=== PATIENT | male | born 1940 | race Caucasian/White ===

== ENCOUNTER 2018-08-18 08:57 | Inpatient (IN) ==
[2018-08-11 13:41] LABS: URINE SOURCE CLEAN CATCH
[2018-08-11 13:47] LABS: BILIRUBIN URINE NEGATIVE (NEGATIVE); BLOOD URINE NEGATIVE (NEGATIVE); COLOR YELLOW; GLUCOSE URINE NEGATIVE (NEGATIVE); KETONE URINE NEGATIVE (NEGATIVE); LEUKOCYTES URINE NEGATIVE (NEGATIVE); NITRITE URINE NEGATIVE (NEGATIVE); PH URINE 6.5; PROTEIN URINE NEGATIVE (NEGATIVE); SP GRAVITY URINE 1.004; TURBIDITY URINE CLEAR (CLEAR); UROBILINOGEN URINE NORMAL (NORMAL)
[2018-08-11 13:49] LABS: UR EPITHELIAL CELLS <10 /HPF (<10); URINE BACTERIA NEGATIVE /HPF; URINE RBC <10 /HPF (<10); URINE WBC <10 /HPF (<10)
[2018-08-11 13:50] LABS: BASO# 0.01 X1000 (0.0-0.2); BASO% 0.2 % (0.0-0.8); EOS# 0.14 X1000 (0.0-0.7); EOS% 2.2 % (0.0-10.0); HEMATOCRIT 43.8 % (42.0-52.0); HEMOGLOBIN 14.4 g/dL (14.0-18.0); IMM GRAN# 0.02 X1000 (0.0-0.04); IMM GRAN% 0.3 % (0.0-0.5); LYMPH# 1.65 X1000 (1.2-3.4); LYMPH% 26.1 % (20.5-51.1); MCHC 32.9 g/dL (33-37); MONO# 0.63 X1000 (0.11-0.59); MPV 9.2 FL (7.4-10.4); NEUT# 3.87 X1000 (1.4-6.5); NEUT% 61.2 % (42.2-75.2); PLT 199 X1000 (130-400); RBC 5.34 XMIL (4.7-6.1); RDW 13.2 % (11.5-14.5); WBC 6.32 X1000 (4.8-10.8)
[2018-08-11 14:03] LABS: AGAP 11; BUN 13 mg/dL (8-22); CALCIUM 9.4 mg/dL (8.8-10.2); CHLORIDE 98 mmol/L (98-107); COSMO 270; CREATININE 0.8 mg/dL (0.7-1.2); ESTIMATED GFR > 60; GLUCOSE 96 mg/dL (70-104); POTASSIUM 4.5 mmol/L (3.5-5.1); SODIUM 135 mmol/L (136-145); TCO2 26 mmol/L (25-35)
--- NOTE | 2018-08-11 14:03 | EKG Report ---
Test Performed on : 08/11/2018 1:30:53 PM Test Reason : PAT Blood Pressure : / mmHG Vent. Rate : 058 BPM Atrial Rate : 058 BPM P-R Int : 176 ms QRS Dur : 086 ms QT Int : 406 ms P-R-T Axes : 033 027 -20 degrees QTc Int : 398 ms Sinus bradycardia. Inferior infarct , age undetermined Abnormal ECG No previous ECGs available Confirmed by Terry FAIRCHILD, Don Barton ([id number]) on 08/12/2018 7:11:03 AM
[2018-08-11 14:14] LABS: INR 0.95; PROTIME 13.5 Seconds (11.0-16.0); PTT 27.5 Seconds (22.3-41.8)
[2018-08-18] MEDS ORDERED: CELEBREX ONE (09:15)
[2018-08-18] MEDS ORDERED: PEPCID ONE (09:15)
[2018-08-18] MEDS ORDERED: REGLAN ONE (09:15)
[2018-08-18] MEDS ORDERED: COLACE ONE (09:15)
[2018-08-18] MEDS ORDERED: LYRICA ONE (09:15)
[2018-08-18] MEDS ORDERED: LR 1,000 ML ONE (09:16)
[2018-08-18] MEDS ORDERED: KEFZOL 1 GM/D5W 2 GM/100 ML IVPB ONE (09:16)
[2018-08-18] MEDS ORDERED: DIPRIVAN 1% ONE (10:00)
[2018-08-18] MEDS ORDERED: XYLOCAINE-MPF 2% ONE (10:00)
[2018-08-18] MEDS ORDERED: QUELICIN (DOSE) ONE (10:00)
[2018-08-18] MEDS ORDERED: FENTANYL ONE (10:00)
[2018-08-18] MEDS ORDERED: ROBINUL ONE (10:19)
[2018-08-18] MEDS ORDERED: NEOSTIGMINE ONE (10:19)
[2018-08-18] MEDS ORDERED: SODIUM CHLORIDE 0.9% ONE (11:35)
[2018-08-18] MEDS ORDERED: CYKLOKAPRON 1,000 MG/NS 1,000 MG/100 ML IVPB ONE (11:35)
[2018-08-18] MEDS ORDERED: DURAMORPH ONE (11:35)
[2018-08-18] MEDS ORDERED: TORADOL ONE (11:35)
[2018-08-18] MEDS ORDERED: SENSORCAINE-MPF 0.5%/EPI 1:200,000 ONE (11:35)
[2018-08-18] MEDS ORDERED: NEOSPORIN G.U. IRRIGANT ONE (11:36)
[2018-08-18] MEDS ORDERED: EXPAREL 1.3% ONE (11:36)
[2018-08-18] MEDS ORDERED: SOLU-CORTEF ONE (12:50)
[2018-08-18] MEDS ORDERED: DECADRON ONE (12:50)
[2018-08-18] MEDS ORDERED: OFIRMEV 1000 MG/ISOTONIC SOLN 1,000 MG/100 ML BOTTLE ONE (12:50)
[2018-08-18] MEDS ORDERED: ZOFRAN ONE (12:50)
[2018-08-18] MEDS ORDERED: EPHEDRINE ONE (12:50)
[2018-08-18 13:02] LABS: URINE SOURCE CATH
[2018-08-18 13:17] LABS: BILIRUBIN URINE NEGATIVE (NEGATIVE); BLOOD URINE NEGATIVE (NEGATIVE); COLOR YELLOW; GLUCOSE URINE NEGATIVE (NEGATIVE); KETONE URINE NEGATIVE (NEGATIVE); LEUKOCYTES URINE NEGATIVE (NEGATIVE); NITRITE URINE NEGATIVE (NEGATIVE); PH URINE 5.5; PROTEIN URINE NEGATIVE (NEGATIVE); SP GRAVITY URINE 1.007; TURBIDITY URINE CLEAR (CLEAR); UROBILINOGEN URINE NORMAL (NORMAL)
[2018-08-18 13:18] LABS: UR EPITHELIAL CELLS <10 /HPF (<10); URINE BACTERIA NEGATIVE /HPF; URINE RBC <10 /HPF (<10); URINE WBC <10 /HPF (<10)
[2018-08-18] MEDS: NS 1,000 ML ONE ×2 (15:01→23:36)
--- NOTE | 2018-08-18 15:15 | Diag Imaging Result Doc PS360 ---
SHOULDER 1 VIEW RIGHT - 08/18/2018 INDICATION: Right total shoulder TECHNIQUE: COMPARISON: None FINDINGS: There has been placement of a right total shoulder arthroplasty. Alignment is anatomic. No hardware fracture or loosening. IMPRESSION: No complication. Electronically signed by Balta Salmon 08/18/2018 3:13 PM
[2018-08-18] MEDS ORDERED: OXY IR PO PRN ×2 (16:00)
[2018-08-18] MEDS ORDERED: MORPHINE IV PRN ×3 (16:00)
[2018-08-18] MEDS ORDERED: NS 1,000 ML IV SCH (16:00)
[2018-08-18] MEDS ORDERED: ZOFRAN PO PRN (16:00)
--- NOTE | 2018-08-18 16:39 | OPERATIVE NOTE ---
PROCEDURE DATE: 08/18/2018 PREOPERATIVE DIAGNOSIS: Right glenohumeral arthritis. POSTOPERATIVE DIAGNOSIS: Right glenohumeral arthritis. PROCEDURE: Right reverse total shoulder arthroplasty with DePuy Delta Xtend size 12 press-fit stem, a 42+ 3 humeral cup, and a 42 eccentric Glenosphere and a standard metaglene. SURGEON: Rowdy Boswell MD COVERAGE SPECIALIST RN: Rocío Dupree 2ND TALENT SCOUT: Lars Ramirez RN. ANESTHESIA: General. IV FLUIDS: 1900 mL lactated Ringer's. ESTIMATED BLOOD LOSS: 100 mL. COMPLICATIONS: None. INDICATIONS: The patient is a pleasant 77-year-old male with a chronic history of pain and discomfort of his right shoulder. X-rays reveal significant degenerative glenohumeral arthritis, and recommendation to proceed with right reverse shoulder arthroplasty was offered. Risks and benefits of surgery were explained, including the risks of anesthesia, , bleeding, infection, failure to relieve pain, postoperative stiffness, nerve injury, blood clots, and other imponderables. All questions were answered, and the patient and family wished to proceed with surgery. DETAILS OF OPERATION: The patient was taken to the operating room and placed supine on the operating table. Once adequate anesthesia was obtained, patient was placed in semi-[place] beach- chair position. The right shoulder was subsequently prepped and draped in usual sterile fashion and placed in 12 pounds of longitudinal traction. The patient was placed supine on the operating table. Once adequate anesthesia was obtained, he was placed in semi-[place] beach-chair position. The right shoulder was subsequently prepped and draped in usual sterile fashion. A standard deltopectoral incision made with skin knife. Hemostasis was obtained using electrocautery. The deltopectoral interval was then developed. Retractors were then placed. The Holley retractor was placed deep to the conjoined tendon, and the subscapularis tendon was identified. A stay suture was placed in medial subscapular. Approximately, 1 cm medial to the insertion of the subscapularis tendon was released. The head was then reduced and dislocated anteriorly. Patient had a very large inferior osteophyte with significant erosion and degenerative arthritic changes. A starting reamer was passed into the intramedullary canal. Sequential reaming was conducted up to a size #12. After this had been performed, an intramedullary guide was then placed into position and humeral head cutting block was pinned in position. The humeral head was then resected. The patient also had a large inferior osteophyte which was removed with a small osteotome and rongeur. The protective disk was then placed in circumferential dissection along with a deep knife. Patient has significant wear of the glenoid. The guide was placed in position to localize the position of the guide pin. Guide pin was then placed in position. Reaming was then conducted. The central hole was then dilated. The wound was copiously irrigated with antibiotic pulsatile lavage. A standard metaglenewas then impacted in position. Two locking screws and 2 nonlocking screws were placed. It had good purchase. Wound was copiously irrigated once again. A 42 eccentric Glenosphere was then placed with the eccentricity placed inferiorly. Attention was then turned to the proximal humerus where the intramedullary guide was placed in position. The proximal humerus was reamed. Copious irrigation was performed once again with antibiotic pulsatile lavage. A 12 press-fit stem was then impacted into position, and then approximately 15 degrees of retroversion. Trial cup size and +42 +3 humeral cup had excellent stability and range of motion. The trial cup was removed. The wound was copiously once again. A 42+ 3 humeral cup was then placed. The shoulder was reduced, carried through range of motion. Good range of motion good stability. Exparel was placed in deep soft tissue, as well as subcutaneous tissue. Copious irrigation then performed once again with antibiotic pulsatile lavage. A #2 FiberWire was used to repair the Subjective scapularis tendon. Final irrigation was then performed. A 2-0 Vicryl used to repair the subcutaneous tissue followed by running 2-0 Prolene. Benzoin and Steri-Strips applied. Adaptic, sterile 4 x 4, ABD pad, and tape to the right shoulder. Sterile mobilizer. All counts were correct. The patient tolerated the procedure well, and was transferred to the recovery room in stable condition. cc: Rowdy Boswell MD MTDD
[2018-08-18] MEDS ORDERED: CYKLOKAPRON 1,000 MG/NS 1,000 MG/100 ML IVPB IV ONE (18:30)
[2018-08-18] MEDS: TYLENOL PO SCH (21:08)
[2018-08-18] MEDS: KEFZOL 2 GM/D5W 2 GM/50 ML IVPB IV SCH (21:39)
[2018-08-19] MEDS: TYLENOL PO SCH ×2 (02:22→08:50)
[2018-08-19] MEDS: KEFZOL 2 GM/D5W 2 GM/50 ML IVPB IV SCH (04:13)
[2018-08-19 05:58] LABS: HEMATOCRIT 34.1 % (42.0-52.0); HEMOGLOBIN 11.4 g/dL (14.0-18.0)
--- NOTE | 2018-08-19 06:17 | PROGRESS NOTE ---
DATE: 08/19/2018 SUBJECTIVE: The patient is a pleasant 77-year-old male, who is 1 day status post right reverse shoulder arthroplasty. He is currently resting careful. OBJECTIVE: The patient's right upper extremity dressing is intact. His is neurovascularly intact distally. Able flex and extend all of his fingers. His labs are pending. IMPRESSION: Postoperative day #1 status post right reverse total shoulder arthroplasty. PLAN: At this point, will change his dressing, and will plan on discharging home later this morning. Will arrange for outpatient physical therapy. cc: Rowdy Boswell MD
[2018-08-19 06:20] LABS: AGAP 9; BUN 12 mg/dL (8-22); CALCIUM 8.5 mg/dL (8.8-10.2); CHLORIDE 104 mmol/L (98-107); COSMO 276; ESTIMATED GFR > 60; GLUCOSE 141 mg/dL (70-104); POTASSIUM 4.4 mmol/L (3.5-5.1); SODIUM 137 mmol/L (136-145); TCO2 24 mmol/L (25-35)
[2018-08-19 07:38] VITALS: BP 124/66
[2018-08-19] MEDS ORDERED: PEPCID PO SCH (09:00)
== END 2018-08-19 11:05 | disposition home or self-care (01) | DRG 483 ==
LOC: SURHOLD 08:57 → 4N 15:54
PROVIDERS: ADMIT Orthopaedic Surgery Adult Reconstructive Orthopaedic Surgery; ATTEND Orthopaedic Surgery Adult Reconstructive Orthopaedic Surgery
CPT/HCPCS: 73020; 80048; 81001; 85014; 85018; 85025; 85610; 85730; 86850; 86900; 86901; 88305; 88311; 93005; 93010; 94761; 94799; 97162; A9270; C1713; C9290; J0131; J0330; J0690; J1100; J1720; J1885; J2274; J2275; J2405; J3010; J7030; J7120; Q9974